=== PATIENT | female | born 1970 | race Caucasian/White ===

== ENCOUNTER → 2016-08-15 | Outpatient (CLI) | payer OTHER | LOC: BRMIMAGING 16:17 | PROVIDERS: ATTEND Family Medicine | DX: R06.09 Other forms of dyspnea (principal) | CPT/HCPCS: 71020-PO ==

== ENCOUNTER → 2017-04-03 | Outpatient (CLI) | payer OTHER | LOC: BRMIMAGING 13:24 | PROVIDERS: ATTEND Family Medicine | DX: M25.571 Pain in right ankle and joints of right foot (principal) | CPT/HCPCS: 73610-PO ==